=== PATIENT | male | born 1965 | race Two or more races ===

== ENCOUNTER 2018-07-19 08:37 | Outpatient (CLI) | payer OTHER | END 2018-07-19 08:48 | disposition home or self-care (01) | LOC: SONOGRAMA 08:37 → MAMO-SONO 08:45 → SONOGRAMA 08:48 | DX: N50.812 Left testicular pain (principal) ==

== ENCOUNTER 2018-09-08 07:13 | Outpatient (CLI) | payer OTHER | END 2018-09-08 07:22 | disposition home or self-care (01) | LOC: NUCLEAR 07:13 | DX: I87.2 Venous insufficiency (chronic) (peripheral) (principal) ==

== ENCOUNTER 2018-09-13 07:19 | Outpatient (CLI) | payer OTHER | END 2018-09-13 07:28 | disposition home or self-care (01) | LOC: NUCLEAR 07:19 | DX: I73.9 Peripheral vascular disease, unspecified (principal) ==

== ENCOUNTER 2020-09-26 13:00 | Outpatient (CLI) | payer OTHER | END 2020-09-26 13:11 | disposition home or self-care (01) | LOC: SONOGRAMA 13:00 → MAMO-SONO 14:45 | PROVIDERS: ATTEND Urology | DX: N40.1 Benign prostatic hyperplasia with lower urinary tract symptoms (principal); E29.1 Testicular hypofunction ==